=== PATIENT | male | born 2000 | race Hispanic/Latino ===

== ENCOUNTER 2021-09-02 11:51 | Emergency (ER) | payer BC, OTHER ==
[~2021-09-02] VITALS: Ht 175.3 cm; Wt 74.8 kg
[2021-09-02] MEDS ORDERED: HYDROCODONE/APAP 5MG-325MG TAB PO ONE (13:00)
[2021-09-02] MEDS ORDERED: ACETAMINOPHEN-1 EAC4 PO (14:39)
== END 2021-09-02 15:23 | disposition home or self-care (01) ==
LOC: ER 12:27
DX: S82.141A Displaced bicondylar fracture of right tibia, initial encounter for closed fracture (principal); S83.511A Sprain of anterior cruciate ligament of right knee, initial encounter; J45.909 Unspecified asthma, uncomplicated; X58.XXXA Exposure to other specified factors, initial encounter; Y92.39 Other specified sports and athletic area as the place of occurrence of the external cause
CPT/HCPCS: 99284